=== PATIENT | male | born 1950 | race Caucasian/White ===

== ENCOUNTER → 2016-08-10 | Outpatient (CLI) | payer MEDICARE, OTHER | END | disposition home or self-care (01) | LOC: CFH 14:38 | PROVIDERS: ATTEND Physician Assistant | DX: E04.1 Nontoxic single thyroid nodule (principal); E78.1 Pure hyperglyceridemia; I10 Essential (primary) hypertension; I70.90 Unspecified atherosclerosis; L98.9 Disorder of the skin and subcutaneous tissue, unspecified; R09.89 Other specified symptoms and signs involving the circulatory and respiratory systems; R78.1 Finding of opiate drug in blood; R97.20 Elevated prostate specific antigen [PSA]; R01.1 Cardiac murmur, unspecified | CPT/HCPCS: 76536 ==

== ENCOUNTER → 2017-02-14 | Outpatient (CLI) | payer MEDICARE, OTHER | END | disposition home or self-care (01) | LOC: CFH 12:40 | PROVIDERS: ATTEND Physician Assistant | DX: I08.2 Rheumatic disorders of both aortic and tricuspid valves (principal); I10 Essential (primary) hypertension; E78.1 Pure hyperglyceridemia | CPT/HCPCS: 93306 ==